=== PATIENT | male | born 1985 | race Caucasian/White ===

== ENCOUNTER 2017-06-03 21:06 | Emergency (ER) ==
[2017-06-03 21:12] VITALS: BP 162/82; TEMP 102; BMI 52.3
[2017-06-03] MEDS: MOTRIN SUSP PO STA (21:36)
--- NOTE | 2017-06-03 22:24 | CT ---
EXAM: CT scan paranasal sinuses HISTORY: The congestion COMPARISON: None. FINDINGS: Contiguous axial images obtained through the sinuses without contrast utilizing 3-mm colli mation. Sagittal and coronal reconstructions were imaged and reviewed.. Extensive mucoperiosteal th ickening is seen within the bilateral maxillary and frontal sinuses with milder changes in the bilate ral sphenoid sinuses. Numerous air cells are opacified in the bilateral ethmoid sinus.. Mastoid air complexes occluded by soft tissue attenuation. IMPRESSION: Extensive pansinusitis with occluded ostiomeatal complexes.
--- NOTE | 2017-06-03 22:25 | CT ---
EXAM: CT chest without intravenous contrast 06/03/2017. Sagittal and coronal reformatted images obt ained HISTORY: Cough and fever COMPARISON: 09/18/2011 FINDINGS: The heart size appears within normal limits. No pericardial effusion. There is no pulmonary consolidation, effusion or pneumothorax. The lungs appear normally aerated. Limited views of the upper abdomen show no acute abnormality. No acute osseous abnormality. IMPRESSION: 1. No acute cardiopulmonary process within the limitation of a noncontrast enhanced examination.
[2017-06-03] MEDS: XOPENEX 1.25 MG NEB STA (22:29)
--- NOTE | 2017-06-03 22:32 | ED.PDOC ---
General ED Provider: Dr. DEISI BOLDEN-ER Chief Complaint: Fever Stated Complaint: yobany had fever and cough and sinus congestioni since yesterday Time Seen by Physician: 21:10 Mode of Arrival: Walk-In Information Source: Patient, Family Exam Limitations: No limitations Primary Care Provider: DEISI BOLDEN Nursing and Triage Documentation Reviewed and Agree: Yes Reviewed sepsis parameters & appropriate labs ordered?: Yes System Inflammatory Response Syndrome: Not Applicable Sepsis Protocol: For patient's 13 years and over: Temp is 96.8 and below OR 101 and greater Pulse >90 BPM Resp >20/minute Acutely Altered Mental Status Are patient's symptoms suggestive of a new infection, such as: -Pneumonia -Skin, Soft Tissue -Endocarditis -UTI -Bone, Joint Infection -Implantable Device -Acute Abdominal Infection -Wound Infection -Meningitis -Blood Stream Catheter Infection -Unknown EENT Complaint Exam - Nasal Complaint/Exam Onset/Duration: 24 hrs Symptoms Are: Still present Timing: Constant Initial Severity: Mild Current Severity: Moderate Location: Bilateral Aggravating: Reports: URI Alleviating: Reports: None Associated Signs and Symptoms: Reports: Sinus pain, Nasal discharge. Denies: Nasal congestion, Bruising, Hematuria, Hematochezia, Foreign body, Abnormal coags Nasal Surgical History: Reports: None Foreign Body Present: No Septal Hematoma: No Differential Diagnoses: Sinusitis, Other Review of Systems - Review Of Systems Constitutional: Reports: Chills, Fever Eyes: Reports: No symptoms Ears, Nose, Mouth, Throat: Reports: Nose discharge Respiratory: Reports: Cough Cardiac: Reports: No symptoms GI: Reports: No symptoms : Reports: No symptoms Musculoskeletal: Reports: No symptoms Skin: Reports: No symptoms Neurological: Reports: No symptoms Endocrine: Reports: No symptoms Hematologic/Lymphatic: Reports: No symptoms All Other Systems: Reviewed and Negative Past Medical History - Past Medical History Previously Healthy: Yes Endocrine: Reports: None Cardiovascular: Reports: Hypertension Respiratory: Reports: None Hematological: Reports: None Gastrointestinal: Reports: None Genitourinary: Reports: None Neuro/Psych: Reports: None Musculoskeletal: Reports: None Cancer: Reports: None - Surgical History General Surgical History: Reports: None - Family History Family History: Reports: None - Social History Smoking Status: Former smoker Hx Substance Use: No Alcohol Screening: None Lives: With family - Immunizations Tetanus Shot up to Date: Yes Physical Exam - Physical Exam Appearance: Well-appearing, No pain distress, Well-nourished Eyes: JAZZ, EOMI, Conjunctiva clear ENT: Rhinorrhea Neck: Supple Respiratory: Rhonchi Cardiovascular: RRR, Pulses normal, No rub, No murmur GI/: Soft, Nontender, No masses, Bowel sounds normal, No Organomegaly Musculoskeletal: Normal strength, ROM intact, No edema, No calf tenderness Skin: Warm, Dry, Normal color Neurological: Sensation intact, Motor intact, Reflexes intact, Cranial nerves intact, Alert, Oriented Psychiatric: Affect appropriate, Mood appropriate Interpretation - Radiology Interpretation Radiology Interpretation By: Radiologist Radiology Results: Positive Exam Interpreted: CT Scan Re-Evaluation - Re-Evaluation Time of Re-Evaluation: 22:31 Status: Improved Vital Signs Stable: Yes Pain Level: 0 Appearance: NAD Lungs: Clear Skin: Warm and Dry Neuro: Alert and Oriented X3 CV: RRR Critical Care Note - Critical Care Note Total Time (mins): 0 Course - Course Hematology/Chemistry: 06/03/17 21:45 06/03/17 21:45 Orders, Labs, Meds: Lab Review 06/03/17 06/03/17 06/03/17 21:12 21:45 21:45 WBC 7.85 RBC 4.92 Hgb 14.8 Hct 42.7 MCV 86.8 MCH 30.1 MCHC 34.7 RDW Coeff of Gaetano 12.4 Plt Count 173 Immature Gran % (Auto) 0.3 Neut % (Auto) 62.9 Lymph % (Auto) 22.5 [place] % (Auto) 13.0 H Eos % (Auto) 1.0 Baso % (Auto) 0.3 Immature Gran # (Auto) 0.0 Neut # (Auto) 4.9 Lymph # (Auto) 1.8 [place] # (Auto) 1.0 Eos # (Auto) 0.1 Baso # (Auto) 0.0 Sodium 138 Potassium 4.0 Chloride 100 Carbon Dioxide 26 Anion Gap 16.0 BUN 12 Creatinine 1.03 Estimated GFR (MDRD) 83.00 BUN/Creatinine Ratio 11.65 Glucose 97 Lactic Acid Calcium 9.7 Total Bilirubin 0.3 AST 19 ALT 25 Alkaline Phosphatase 88 Total Protein 7.4 Albumin 3.6 Globulin 3.8 Albumin/Globulin Ratio 0.95 Procalcitonin Urine Color Urine Clarity Urine pH Ur Specific [place] Urine Protein Urine Glucose (UA) Urine Ketones Urine Blood Urine Nitrite Urine Bilirubin Urine Urobilinogen Ur Leukocyte Esterase Influ A Molecular Assay Negative by naat Influ B Molecular Assay Positive by naat H 06/03/17 06/03/17 06/03/17 21:45 21:45 22:05 WBC RBC Hgb Hct MCV MCH MCHC RDW Coeff of Gaetano Plt Count Immature Gran % (Auto) Neut % (Auto) Lymph % (Auto) [place] % (Auto) Eos % (Auto) Baso % (Auto) Immature Gran # (Auto) Neut # (Auto) Lymph # (Auto) [place] # (Auto) Eos # (Auto) Baso # (Auto) Sodium Potassium Chloride Carbon Dioxide Anion Gap BUN Creatinine Estimated GFR (MDRD) BUN/Creatinine Ratio Glucose Lactic Acid 12.2 Calcium Total Bilirubin AST ALT Alkaline Phosphatase Total Protein Albumin Globulin Albumin/Globulin Ratio Procalcitonin < 0.05 Urine Color Yellow Urine Clarity Clear Urine pH 6.5 Ur Specific [place] 1.020 Urine Protein Negative Urine Glucose (UA) Negative Urine Ketones Negative Urine Blood Negative Urine Nitrite Negative Urine Bilirubin Negative Urine Urobilinogen 0.2 Ur Leukocyte Esterase Negative Influ A Molecular Assay Influ B Molecular Assay Orders Category Date Time Status NEBULIZER TREATMENT Stat CARDIO 06/03/17 22:12 Ordered BLOOD CULTURE (ED ONLY) Stat LAB 06/03/17 21:45 Received CBC W/ AUTO DIFF Stat LAB 06/03/17 21:45 Completed COMPREHENSIVE METABOLIC PANEL Stat LAB 06/03/17 21:45 Completed FLU A/B MOLECULAR Stat LAB 06/03/17 21:12 Completed LACTIC ACID Stat LAB 06/03/17 21:45 Completed MOLECULAR GROUP A STREP Stat LAB 06/03/17 21:12 Completed PROCALCITONIN Stat LAB 06/03/17 21:45 Completed URINALYSIS C & S IF INDICATED Stat LAB 06/03/17 22:05 Completed Ibuprofen Susp [Motrin Susp] MEDS 06/03/17 21:31 Discontinued 600 mg PO ONCE STA Levalbuterol HCl [Xopenex 1.25 mg] MEDS 06/03/17 22:12 Discontinued [address] vial NEB ONCE STA [address] CHEST W/O CONTRAST Stat RADS 06/03/17 21:[address] SINUSES W/O CONTRAST Stat RADS 06/03/17 21:31 Completed Medications Discontinued Medications Generic Name Dose Route Start Last Admin Trade Name Freq PRN Reason Stop Dose Admin Ibuprofen 600 mg 06/03/17 21:31 06/03/17 21:36 Motrin Susp PO 06/03/17 21:32 600 mg ONCE STA Administration Levalbuterol HCl 1 vial 06/03/17 22:12 Xopenex 1.25 Mg NEB 06/03/17 22:13 ONCE STA Vital Signs: Temp Pulse Resp BP Pulse Ox 06/03/17 21:07 102 F H 108 H 20 162/82 H 94 L Departure - Departure Time of Disposition: 22:31 Disposition: HOME SELF-CARE Discharge Problem: Influenza B Sinusitis Qualifiers: Sinusitis location: other Chronicity: acute Recurrence: non-recurrent Qualified Code(s): J01.80 - Other acute sinusitis Instructions: Influenza (ED) Condition: Good Pt referred to PMD for follow-up: Yes IPMP verified?: No Additional Instructions: augmentin 875mg bid x 10 days--medrol dose pack---tamiflu 75mg bid x 5 days --- tessalon perles 200mg tid prn cough 30---=-rest--fluids--motrin for temp--see me if not iproving in 72hrs Allergies/Adverse Reactions: Allergies No Known Allergies Allergy (Verified 06/03/17 21:10) Home Medications: Ambulatory Orders Fluticasone Propionate [Flonase Allergy Relief] 9.9 ml NS Q12H 06/03/17 Disposition Discussed With: Patient, Family
== END 2017-06-03 22:43 | disposition home or self-care (01) ==
LOC: ED 21:06
DX: J10.1 Influenza due to other identified influenza virus with other respiratory manifestations (principal); J01.80 Other acute sinusitis
CPT/HCPCS: 36415; 80053; 81001; 83605; 84145; 85025; 87040; 87502; 87651; 94640; 99283

== ENCOUNTER 2017-06-26 17:57 | Emergency (ER) ==
[2017-06-26 17:59] VITALS: BP 147/88; TEMP 97.8; BMI 52.7
--- NOTE | 2017-06-26 18:26 | ED.PDOC ---
General ED Provider: Dr. STEVE HARPER Chief Complaint: Finger Laceration Stated Complaint: LACERATION LEFT SECNOND AND THIRD FINGER Time Seen by Physician: 18:00 (SEE PHOTOS) Mode of Arrival: Walk-In Information Source: Patient Exam Limitations: No limitations Primary Care Provider: DEISI BOLDEN Nursing and Triage Documentation Reviewed and Agree: Yes Reviewed sepsis parameters & appropriate labs ordered?: Yes System Inflammatory Response Syndrome: Not Applicable Sepsis Protocol: For patient's 13 years and over: Temp is 96.8 and below OR 101 and greater Pulse >90 BPM Resp >20/minute Acutely Altered Mental Status Are patient's symptoms suggestive of a new infection, such as: -Pneumonia -Skin, Soft Tissue -Endocarditis -UTI -Bone, Joint Infection -Implantable Device -Acute Abdominal Infection -Wound Infection -Meningitis -Blood Stream Catheter Infection -Unknown System Inflammatory Response Syndrome: Not Applicable Musculoskeletal Complaint Exam - Hand/Wrist Complaint/Exam Location of Pain: Reports: Left, Digit #2, Digit #3 (DISTAL TIP SUSTAINED A LACERATION ON THE LATERAL ASPECT OF FINGER BY S SHARP METAL) Mechanism of Injury: Reports: Trauma Onset/Duration: 1 HR AGO BY A SHARP METAL Symptoms Are: Still present Onset of Pain: Reports: Minutes (STATED HAD A TETNUS SHOT 1 YR AGO) Initial Severity: Mild Current Severity: Mild Character: Reports: Burning Alleviating: Reports: Rest Aggravating: Reports: Movement Associated Signs and Symptoms: Denies: Swelling, Redness, Bruising, Fever, Weakness, Numbness, Tingling Dominant Hand: Right Related Surgical History: Reports: None Hand/Wrist Findings: Present: Laceration (SEE PHOTOS) Differential Diagnoses: Other (LACERATION) Review of Systems - Review Of Systems Constitutional: Reports: No symptoms Eyes: Reports: No symptoms Ears, Nose, Mouth, Throat: Reports: No symptoms Respiratory: Reports: No symptoms Cardiac: Reports: No symptoms GI: Reports: No symptoms : Reports: No symptoms Musculoskeletal: Reports: No symptoms Skin: Reports: Other (LACERATION FINGER LEFT SECOND , THIRD FINGER ) Neurological: Reports: No symptoms Endocrine: Reports: No symptoms Hematologic/Lymphatic: Reports: No symptoms All Other Systems: Reviewed and Negative Past Medical History - Past Medical History Previously Healthy: Yes Endocrine: Reports: None Cardiovascular: Reports: Hypertension Respiratory: Reports: None Hematological: Reports: None Gastrointestinal: Reports: None Genitourinary: Reports: None Neuro/Psych: Reports: None Musculoskeletal: Reports: None Cancer: Reports: None - Surgical History General Surgical History: Reports: None - Family History Family History: Reports: None - Social History Smoking Status: Former smoker Hx Substance Use: No Alcohol Screening: None - Immunizations Tetanus Shot up to Date: Yes (last year) Physical Exam - Physical Exam Appearance: Well-appearing, No pain distress, Well-nourished Eyes: JAZZ, EOMI, Conjunctiva clear ENT: Ears normal, Nose normal, Oropharynx normal Respiratory: Airway patent, Breath sounds clear, Breath sounds equal, Respirations nonlabored Cardiovascular: RRR, Pulses normal, No rub, No murmur GI/: Soft, Nontender, No masses, Bowel sounds normal, No Organomegaly Musculoskeletal: Normal strength, ROM intact, No edema, No calf tenderness Skin: Warm, Dry (LACERATION LEFT SECOND AND THIRD SEE PHOTOS) Neurological: Sensation intact, Motor intact, Reflexes intact, Cranial nerves intact, Alert, Oriented Psychiatric: Affect appropriate, Mood appropriate Procedures - Laceration/Wound Repair No standard instances Wound Description: Linear Wound Length (cm): SECOND AND THIRD 1CM Wound Width: 1MM DEEP Wound Depth: 1MM Wound Explored: Clean Wound Irrigated: Yes (MANUAL SCRUB ) Wound Prep: Hibiclens Wound Repaired With: Dermabond Critical Care Note - Critical Care Note Total Time (mins): 0 Course - Course Vital Signs: Temp Pulse Resp BP Pulse Ox 06/26/17 17:57 97.8 F 91 H 20 147/88 H 95 Departure - Departure Time of Disposition: 18:29 (SEE PHOTOS) Disposition: HOME SELF-CARE Discharge Problem: Laceration of finger Instructions: Laceration (ED), Skin Adhesive Care (ED) Condition: Good Pt referred to PMD for follow-up: Yes IPMP verified?: No Additional Instructions: Please call your Family Physician as soon as possible to schedule a follow-up appointment. Allergies/Adverse Reactions: Allergies No Known Allergies Allergy (Verified 06/26/17 17:59) Home Medications: Ambulatory Orders 1 [No Reported Medications] 06/26/17 Disposition Discussed With: Patient, Family
== END 2017-06-26 18:35 | disposition home or self-care (01) ==
LOC: ED 17:57
DX: S61.211A Laceration without foreign body of left index finger without damage to nail, initial encounter (principal); S61.213A Laceration without foreign body of left middle finger without damage to nail, initial encounter; W45.8XXA Other foreign body or object entering through skin, initial encounter
CPT/HCPCS: 99283